=== PATIENT | male | born 1980 | race Caucasian/White ===

== ENCOUNTER 2018-11-20 15:39 | Emergency (ER) | payer OTHER ==
[~2018-11-20] VITALS: Ht 172.7 cm; Wt 79.0 kg
[2018-11-20] MEDS ORDERED: ASPIRIN 81MG TABLET PO ONE (17:30)
[2018-11-20 17:40] LABS: BASOPHILS % 0.8 % (0.0-2.0); EOSINOPHILS % 1.3 % (0.0-5.0); HEMATOCRIT. 46.8 % (42.0-52.0); LYMPHOCYTES % 27.1 % (20.0-50.0); MEAN CORPUSCULAR HEMOGLOBIN 31.5 pg (28.0-32.0); MEAN CORPUSCULAR VOLUME 92.4 fL (80.0-94.0); MEAN PLATELET VOLUME 8.8 fl (7.4-10.4); MONOCYTES % 9.7 % (2.0-8.0); NEUTROPHILS % 61.1 % (40.0-76.0); PLATELET 240 x1000/uL (130-400); RED BLOOD CELL COUNT 5.07 mill/uL (4.7-6.1); RED CELL DISTRIBUTION WIDTH 12.9 % (11.6-14.6)
[2018-11-20 17:48] LABS: INR 1.1; PROTHROMBIN TIME 10.6 sec (9.1-11.1)
[2018-11-20 17:54] LABS: CHLORIDE 105 mEq/L (98-107)
[2018-11-20 19:44] VITALS: BP 142/78
== END 2018-11-20 19:44 | disposition home or self-care (01) ==
LOC: ER 15:39
DX: R07.89 Other chest pain (principal); F12.10 Cannabis abuse, uncomplicated
CPT/HCPCS: 36415; 71045; 84484; 85379; 93005; 93970; 99284